=== PATIENT | female | born 1965 | race Two or more races ===

== ENCOUNTER 2018-12-18 16:00 | Emergency (ER) | payer MEDICAID ==
[~2018-12-18] VITALS: Ht 167.6 cm; Wt 209.1 kg
--- NOTE | 2018-12-18 16:12 | NUR ---
"RLQ abd pain, non radiating, since yesterday" PT AAOX4, -SOB, NAD NOTED, VSS, PENDING MD YANEZ
[2018-12-18] MEDS ORDERED: IV NS 0.9% 1,000 ML BAG IV ONE (16:30)
[2018-12-18] MEDS ORDERED: MORPHINE SULFATE INJ 2 MG/ML DISP.SYRIN IV ONE ×2 (16:30→18:30)
[2018-12-18] MEDS ORDERED: ONDANSETRON HCL/PF 4 MG/2 ML VIAL IVP ONE (16:30)
[2018-12-18] MEDS ORDERED: PANTOPRAZOLE 40 MG VIAL IV ONE (16:30)
[2018-12-18 16:51] LABS: BASOPHILS % (AUTO) 0.6 % (0.0-2.0); EOSINOPHILS % (AUTO) 3.3 % (0.0-6.0); HEMATOCRIT 38 % (33-45); HEMOGLOBIN 11.3 g/dL (11.5-14.8); LYMPHOCYTES % (AUTO) 17.4 % (20.0-44.0); MEAN CORPUSCULAR HGB CONC 30 g/dl (31.0-36.0); MEAN CORPUSCULAR VOLUME 86 fL (82-100); MONOCYTES # (AUTO) 0.6 /CMM (0.1-1.30); MONOCYTES % (AUTO) 10.4 % (2.0-12.0); NEUTROPHILS # (AUTO) 4.1 /CMM (1.8-8.9); NEUTROPHILS % (AUTO) 68.3 % (43.0-81.0); PLATELET COUNT (AUTO) 247 /CMM (150-450); RED BLOOD CELL COUNT(AUTO) 4.37 MIL/uL (4.0-5.2); WHITE BLOOD COUNT (AUTO) 5.9 K/uL (4.3-11.0)
[2018-12-18] MEDS ORDERED: PANTOPRAZOLE 40 MG VIAL ONE (16:53)
[2018-12-18] MEDS ORDERED: ONDANSETRON HCL/PF 4 MG/2 ML VIAL ONE (16:53)
[2018-12-18] MEDS ORDERED: MORPHINE SULFATE INJ 4 MG/ML DISP.SYRIN ONE ×2 (16:54→18:15)
[2018-12-18 17:22] LABS: BILIRUBIN,TOTAL 0.4 mg/dL (0.2-1.0); CALCIUM, SERUM 9.3 mg/dL (8.5-10.1); CREATININE 0.7 mg/dL (0.6-1.3); POTASSIUM 5.2 mmol/L (3.5-5.1); TOTAL PROTEIN, SERUM 8.2 g/dL (6.4-8.2)
--- NOTE | 2018-12-18 17:34 | NUR ---
URINE COLLEFTED AND SENT TO LAB
[2018-12-18 17:37] LABS: BILIRUBIN,URINE Negative (NEGATIVE); BLOOD, URINE Small Ery/uL (NEGATIVE); COLOR,URINE Yellow (YELLOW); KETONES,URINE Negative (NEGATIVE); LEUKOCYTE ESTERASE ,URINE Small (NEGATIVE); NITRITE, URINE Negative (NEGATIVE); PH,URINE 6.5 (5.0-8.0); PROTEIN,URINE 30 mg/dl (NEGATIVE); UGLUCOSE Negative (NEGATIVE); UROBILINOGEN,URINE 0.2 EU/dL (0.2)
[2018-12-18 17:39] LABS: APPEARANCE,URINE SLIGHTLY HAZY (CLEAR)
[2018-12-18 17:48] LABS: BACTERIA,URINE Many /HPF (None Seen); SQUAMOUS EPITHELIAL CELL,UR Few /HPF (None Seen)
[2018-12-18] MEDS ORDERED: CEFTRIAXONE 1GM BAG (ER ONLY) 1 GM/50 ML PIGGYBACK IV ONE (18:00)
[2018-12-18] MEDS ORDERED: CEFTRIAXONE 1GM BAG (ER ONLY) 50 ML IV ONE (18:11)
--- NOTE | 2018-12-18 18:25 | NUR ---
CALLED [facility], PRESENTED PT, AWAITING CALL BACK FROM [facility]
--- NOTE | 2018-12-18 18:30 | NUR ---
ON THE PHONE WITH [place]
--- NOTE | 2018-12-18 19:22 | NUR ---
PT WILL BE TRANSFERRED TO [facility] ER ACCEPTING MD: DR. GUEVARA NUMBER FOR REPORT: [phone] ETA ALS TRANSPORTATION: 1954
[2018-12-18 19:41] VITALS: BP 107/78
--- NOTE | 2018-12-18 19:47 | NUR ---
REPORT GIVEN TO VIN KELLEY AT [facility] [place]
--- NOTE | 2018-12-18 20:43 | NUR ---
pt left via private ambulance to [facility] --prn ambulance, report given, left in stable condition ,vss
== END 2018-12-18 20:45 | disposition home or self-care (01) ==
LOC: ER 16:00
DX: N39.0 Urinary tract infection, site not specified (principal); E66.01 Morbid (severe) obesity due to excess calories; I11.0 Hypertensive heart disease with heart failure; I50.9 Heart failure, unspecified; I48.91 Unspecified atrial fibrillation; Z68.45 Body mass index [BMI] 70 or greater, adult; Z98.890 Other specified postprocedural states; Z88.8 Allergy status to other drugs, medicaments and biological substances; Z88.6 Allergy status to analgesic agent; Z60.2 Problems related to living alone
CPT/HCPCS: 36415; 71045; 80048; 80076; 81001; 83690; 85025; 87086; 93005; 96365; 96375; 96376; 99284; C9113; J0696; J2270 ×2; J2405; J7030 ×2; 81000-TC; 87186-TC

== ENCOUNTER 2021-03-11 17:42 | Emergency (ER) | payer MEDICAID ==
[~2021-03-11] VITALS: Ht 162.6 cm; Wt 235.4 kg
--- NOTE | 2021-03-11 18:05 | NUR ---
[id number] FRM [facility] FOR LOWER BACK PAIN SINCE THIS MORNING. RATES PAIN 10/10.DENIES TRAUMA. WILL CONTINUE TO MONITOR THE PATIENT.
--- NOTE | 2021-03-11 19:18 | NUR ---
US TECH AT THE BEDSIDE
--- NOTE | 2021-03-11 19:18 | NUR ---
REPORT GIVEN TO NURSE MELONY FOR [facility]NETTE
[2021-03-11] MEDS ORDERED: MORPHINE SULFATE INJ 2 MG/ML DISP.SYRIN IV ONE (19:30)
[2021-03-11] MEDS ORDERED: ONDANSETRON HCL/PF - ER 4 MG/2 ML VIAL IV ONE (19:30)
[2021-03-11] MEDS ORDERED: IV NS 0.9% 1,000 ML BAG IV ONE (19:30)
--- NOTE | 2021-03-11 19:30 | NUR ---
UPTWIST SPINNER AT PT'S BEDSIDE
[2021-03-11 19:38] LABS: BASOPHILS # (AUTO) 0.2 K/uL (0.0-0.2); EOSINOPHILS % (AUTO) 1.8 % (0.0-6.0); HEMATOCRIT 37 % (33-45); HEMOGLOBIN 11.4 g/dL (11.5-14.8); LYMPHOCYTES # (AUTO) 1.1 K/uL (0.8-4.8); LYMPHOCYTES % (AUTO) 14.5 % (20.0-44.0); MEAN CORPUSCULAR HGB CONC 31 g/dl (31.0-36.0); MEAN CORPUSCULAR VOLUME 93 fL (82-100); MONOCYTES # (AUTO) 0.6 K/uL (0.1-1.30); MONOCYTES % (AUTO) 8.3 % (2.0-12.0); NEUTROPHILS # (AUTO) 5.7 K/uL (1.8-8.9); NEUTROPHILS % (AUTO) 73.4 % (43.0-81.0); PLATELET COUNT (AUTO) 198 K/uL (150-450); WHITE BLOOD COUNT (AUTO) 7.7 K/uL (4.3-11.0)
--- NOTE | 2021-03-11 19:40 | NUR ---
CT SCAN OF THE ABDOMEN PELVIS IS UNABLE TO BE COMPLETED, DUE TO SCANNERS WEIGHT LIMITATION. ORDERING PUMP MECHANIC ELVIS IS AWARE @194
[2021-03-11 19:46] LABS: CALCIUM, SERUM 8.8 mg/dL (8.5-10.1); CREATININE 0.8 mg/dL (0.6-1.3); POTASSIUM 4.7 mmol/L (3.5-5.1)
[2021-03-11] MEDS ORDERED: ONDANSETRON HCL/PF 4 MG/2 ML VIAL ONE (19:52)
[2021-03-11] MEDS ORDERED: MORPHINE SULFATE INJ 4 MG/ML DISP.SYRIN ONE (19:53)
[2021-03-11 21:13] LABS: BILIRUBIN,URINE Negative (NEGATIVE); COLOR,URINE YELLOW (YELLOW); LEUKOCYTE ESTERASE ,URINE Negative (NEGATIVE); NITRITE, URINE Negative (NEGATIVE); PROTEIN,URINE 100 mg/dl (NEGATIVE); UGLUCOSE Negative (NEGATIVE); UROBILINOGEN,URINE 0.2 EU/dL (0.2)
--- NOTE | 2021-03-11 21:16 | NUR ---
URINE COLLECTED AND SENT TO LAB
[2021-03-11] MEDS ORDERED: HYDROCODONE/APAP 10/325MG TABLET ONE (21:26)
[2021-03-11] MEDS ORDERED: HYDROCODONE/APAP 10/325MG TABLET PO ONE (21:30)
--- NOTE | 2021-03-11 21:40 | NUR ---
CALLED JOSÉ MIGUEL VIVAS @ [place] AND INFORMED THERESE REGARDING PT'S DISCHARGE STATUS. [address], [place]. [place] [address] TEL: [phone]
--- NOTE | 2021-03-11 21:41 | NUR ---
CALLED [facility] TO ARRANGE TRANSPORTATION BACK TO THE FACILITY. WAS TOLD TO CALL BACK AT 0700
[2021-03-11 21:46] LABS: BACTERIA,URINE Rare /HPF (None Seen); SQUAMOUS EPITHELIAL CELL,UR Few /HPF (None Seen); WBC,URINE NONE SEEN /HPF (0-3)
[2021-03-11] MEDS ORDERED: CEPH500T PO (21:51)
--- NOTE | 2021-03-11 21:52 | NUR ---
SPOKE TO DEBORA AT [facility] TO ARRANGE TRANSPORTATION BACK TO THE FACILITY.
--- NOTE | 2021-03-11 21:59 | NUR ---
DR CARRILLO SPEAKING WITH [employer]
--- NOTE | 2021-03-11 22:03 | NUR ---
AUTH NUMBER FROM DR LYONS FOR TRANSPORTATION: [id number]
--- NOTE | 2021-03-11 22:24 | NUR ---
ETA 0400 WITH PRN
--- NOTE | 2021-03-11 22:34 | NUR ---
GAVE PT FOOD AND JUICE. LFA #22G S/L; PATENT AND INTACT. ALL NEEDS MET AT THIS THIS TIME.
[2021-03-11 23:10] VITALS: BP 133/75
--- NOTE | 2021-03-12 03:20 | NUR ---
UPDATE GIVEN TO JOSÉ MIGUEL KELLEY
--- NOTE | 2021-03-12 03:30 | NUR ---
REPORT GIVEN TO EMS AT BEDSIDE
--- NOTE | 2021-03-12 03:31 | NUR ---
patient being transfered via ambulance
== END 2021-03-12 03:33 ==
LOC: ER 18:07
DX: R10.9 Unspecified abdominal pain (principal); I11.0 Hypertensive heart disease with heart failure; I50.9 Heart failure, unspecified; I48.91 Unspecified atrial fibrillation; Z98.890 Other specified postprocedural states; Z88.6 Allergy status to analgesic agent; Z88.8 Allergy status to other drugs, medicaments and biological substances; Z60.2 Problems related to living alone
CPT/HCPCS: 36415; 76770; 80048; 81001; 83690; 85025; 87086; 96361; 96374; 96375; 99284; J2270; J2405